=== PATIENT | male | born 1980 | race Two or more races ===

== ENCOUNTER 2021-03-22 07:31 | Emergency (ER) | payer BC ==
[~2021-03-22] VITALS: Ht 175.3 cm; Wt 124.7 kg
[2021-03-22] MEDS ORDERED: cloNIDine HCL 0.1 MG TAB ONE (08:29)
[2021-03-22] MEDS ORDERED: cloNIDine HCL 0.1 MG TAB PO ONE (08:30)
[2021-03-22 09:13] VITALS: BP 150/96
== END 2021-03-22 09:26 | disposition home or self-care (01) ==
LOC: ER 07:31
DX: S06.0X0A Concussion without loss of consciousness, initial encounter (principal); I10 Essential (primary) hypertension; F17.210 Nicotine dependence, cigarettes, uncomplicated; W20.8XXA Other cause of strike by thrown, projected or falling object, initial encounter; Y93.89 Activity, other specified; Y92.89 Other specified places as the place of occurrence of the external cause; Y99.8 Other external cause status
CPT/HCPCS: 70450